=== PATIENT | male | born 1950 | race Asian ===

== ENCOUNTER 2016-10-07 11:16 | Emergency (ER) | payer SELFPAY ==
[~2016-10-07] VITALS: Ht 170.2 cm; Wt 76.2 kg
[2016-10-07 11:33] VITALS: BP 138/86
[2016-10-07] MEDS ORDERED: EXFORGE 5-1601 EACH ORAL (12:04)
[2016-10-07 12:23] VITALS: BP 138/86
--- NOTE | 2016-10-07 23:50 | Emergency Room Report ---
History of Present Illness General Chief Complaint: Medication Refill Source: Patient Present Illness HPI Visit from [facility]. Out of BP meds. No chest pain, palpitations, HWANG, fever, NVD, fatigue, change in urine. Request BP med refill. Will be in [place] 2 months. Allergies: Coded Allergies: No Known Allergies (Unverified , 10/07/16) Patient History Past Medical History: see triage record Social History Narrative from [facility] Reviewed Nursing Documentation: PMH: Agreed, PSxH: Agreed Nursing Documentation-PMH Past Medical History: No History, Except For Hx Hypertension: Yes Review of Systems All Other Systems: negative except mentioned in HPI Physical Exam Vital Signs Date Time Temp Pulse Resp B/P Pulse Ox O2 Delivery O2 Flow Rate FiO2 10/07/16 11:28 98.6 85 14 138/86 99 10/07/16 11:33 Room Air Sp02 EP Interpretation: reviewed, normal General Appearance: well appearing, no apparent distress, GCS 15 Head: normocephalic, atraumatic Eyes: bilateral eye normal inspection ENT: hearing grossly normal, normal voice, moist mucus membranes Neck: full range of motion, supple Respiratory: no respiratory distress, speaking full sentences Musculoskeletal: digits/nails normal, gait/station normal, no calf tenderness Neurologic: alert, normal gait, grossly normal Psychiatric: mood/affect normal Skin: no rash Medical Decision Making Diagnostic Impression: Primary Impression: Hypertension Qualified Codes: I10 - Essential (primary) hypertension ER Course Patient with HTN request medication refill. No medical emergency at this time. Patient stable for outpatient observation and treatment. Last Vital Signs Date Time Temp Pulse Resp B/P Pulse Ox O2 Delivery O2 Flow Rate FiO2 10/07/16 12:23 98.6 85 14 138/86 99 Room Air Status: unchanged Disposition: HOME, SELF-CARE Condition: Stable Scripts Amlodipine/Valsartan (EXFORGE 5-160 MG TABLET) 1 Each Tablet 0.5 TAB ORAL DAILY, #14 TAB 0 Refills Prov: Mike Nash M.D. 10/07/16 Referrals: NOT CHOSEN [facility]/,REFERRING (PCP) Patient Instructions: Hypertension Additional Instructions: See a doctor soon. Mike Nash M.D. Oct 07, 2016 23:50
== END 2016-10-07 12:23 | disposition home or self-care (01) ==
LOC: EMR 12:05
DX: I10 Essential (primary) hypertension (principal); Z76.0 Encounter for issue of repeat prescription
CPT/HCPCS: 99282